=== PATIENT | female | born 1960 | race Caucasian/White ===

== ENCOUNTER → 2018-12-11 10:38 | Outpatient (CLI) | payer BC, SELFPAY ==
--- NOTE | 2018-12-11 10:43 | XR_ITS ---
XR foot LT min 3V HISTORY: ITS.REASON: LEFT FOOT PAIN ORDERING PHYSICIAN: Fredrick Noe MD PATIENT AGE: 58 years COMPARISON: None FINDINGS: There is nondisplaced fracture of the base of the fifth metatarsal with extension into the articular surface of the metatarsal tarsal joint space. Otherwise negative. IMPRESSION: Nondisplaced fracture of the base of the fifth metatarsal
--- NOTE | 2018-12-11 10:43 | XR_ITS ---
XR ankle LT min 3V HISTORY: Pain following injury ITS.REASON: LEFT FOOT PAIN ORDERING PHYSICIAN: Fredrick Noe MD PATIENT AGE: 58 years Comparison: None FINDINGS: There is nondisplaced fracture of the base of the lateral malleolus with overlying soft tissue swelling. Nondisplaced fracture also involves the base of the fifth metatarsal with intra-articular extension. IMPRESSION: Nondisplaced fractures at the base of the lateral malleolus and base of fifth metatarsal with soft tissue swelling
== END ==
PROVIDERS: PCP Family Medicine; Visit Provider Family Medicine
DX: M79.672 Pain in left foot (principal); M25.572 Pain in left ankle and joints of left foot
CPT/HCPCS: 73610; 73630

== ENCOUNTER → 2019-01-10 11:09 | Outpatient (CLI) | payer BC, SELFPAY ==
--- NOTE | 2019-01-10 11:16 | XR_ITS ---
XR foot LT min 3V HISTORY: Follow-up fracture ITS.REASON: FX FIFTH METATARSAL OF LT FOOT ORDERING PHYSICIAN: Ciara Thibodeaux APRN PATIENT AGE: 58 years COMPARISON: 12/11/2018 FINDINGS: Nondisplaced transverse fracture once again noted involving the base of the fifth metatarsal. Fracture line is slightly more apparent when compared to the previous exam. No callous formation evident. IMPRESSION: Persistent nondisplaced transverse fracture base of fifth metatarsal with slight increase in prominence of the fracture line.
--- NOTE | 2019-01-10 11:16 | XR_ITS ---
XR wrist LT min 3V HISTORY ITS.REASON: LT WRIST PAIN ORDERING PHYSICIAN: Ciara Thibodeaux APRN PATIENT AGE: 58 years Comparison: None FINDINGS: There is a comminuted impacted fracture of the distal radius with intra-articular extension of the longitudinal fracture fragments and mild dorsal angulation as well as mild dorsal displacement of the dorsal fracture fragment. There is associated ulnar styloid process fracture. IMPRESSION: There is a comminuted impacted fracture of the distal radius with intra-articular extension of the longitudinal fracture fragments and mild dorsal angulation as well as mild dorsal displacement of the dorsal fracture fragment. There is associated ulnar styloid process fracture
--- NOTE | 2019-01-10 11:16 | XR_ITS ---
XR ankle LT min 3V HISTORY: Follow-up lateral malleoli fracture ITS.REASON: FX LAT MALLEOLUS ORDERING PHYSICIAN: Ciara Thibodeaux APRN PATIENT AGE: 58 years Comparison: 12/11/2018 FINDINGS: There is a nondisplaced transverse fracture involving the distal fibula 18 mm proximal to the tip of the fibula fracture line is visible laterally and not significant changed. There is mild soft tissue swelling. The ankle mortise is preserved. IMPRESSION: No change nondisplaced transverse distal fibular fracture with soft tissue swelling.
== END ==
PROVIDERS: PCP Family Medicine; Visit Provider Nurse Practitioner
DX: M25.532 Pain in left wrist (principal); S92.355A Nondisplaced fracture of fifth metatarsal bone, left foot, initial encounter for closed fracture; S82.65XA Nondisplaced fracture of lateral malleolus of left fibula, initial encounter for closed fracture
CPT/HCPCS: 73110; 73610; 73630

== ENCOUNTER → 2019-01-11 15:01 | Outpatient (CLI) | payer BC, SELFPAY ==
--- NOTE | 2019-01-11 15:17 | XR_ITS ---
XR chest 2V HISTORY: ITS.REASON: TOBACCO USE, PRE OP ORDERING PHYSICIAN: Claudia Braun MD PATIENT AGE: 58 years COMPARISON: 02/06/2017 FINDINGS: Unremarkable cardiovascular structures. COPD. No lobar consolidation or collapse. There is a bone plate over the right clavicle. No acute bony findings. IMPRESSION: COPD, no change with no acute finding
[2019-01-11 15:18] LABS: Basophils # 0.1 K/mm3 (0-0.2); Basophils % 0.6 % (0.1-2.0); Eosinophils # 0.1 K/mm3 (0.0-0.4); Eosinophils % 0.9 % (0.1-12.0); Hematocrit 48.2 % (37.0-47.0); Hemoglobin 15.9 g/dL (12.2-16.2); Lymphocytes # 2.5 K/mm3 (0.7-4.5); Lymphocytes % 26.6 % (10-50); Mean Corpuscular Volume 93.9 fl (81-99); Monocytes # 0.6 K/mm3 (0.1-1.0); Neutrophils # 6.2 K/mm3 (1.8-7.8); Neutrophils % 65.9 % (37.0-80.0); Platelet Count 318 K/mm3 (142-424); Red Blood Count 5.13 M/mm3 (4.20-5.40); Red Cell Distribution Width 13.4 % (11.5-17.5); White Blood Count 9.4 K/mm3 (4.8-10.8)
[2019-01-11 17:38] LABS: Alanine Aminotransferase 51 U/L (12-78); Albumin Level 3.5 gm/dL (3.4-5.0); Albumin/Globulin Ratio 0.9 (1.1-1.8); Alkaline Phosphatase 146 U/L (46-116); Anion Gap 14.5 mEq/L (5-15); Aspartate Amino Transferase 52 U/L (15-37); Bilirubin,Total 0.3 mg/dL (0.2-1.0); Blood Urea Nitrogen 7 mg/dL (7-18); Calcium 8.7 mg/dL (8.5-10.1); Carbon Dioxide 28 mmol/L (21.0-32.0); Chloride 101 mmol/L (98-107); Creatinine,Serum 0.67 mg/dL (0.55-1.02); Estimated Glomerular Filt Rate 90 ml/min (>60); GFR (African American) 109 ML/MIN (>60); Globulin 3.7 gm/dl (1.3-3.2); Glucose 97 mg/dL (74-106); Potassium 4.5 mmoL/L (3.5-5.1); Sodium 139 mmol/L (136-145); Total Protein,Serum 7.2 gm/dL (6.4-8.2)
[2019-01-11 17:56] LABS: INR 0.91 (0.9-1.1); Prothrombin Time 9.5 seconds (9.4-11.8)
== END ==
PROVIDERS: Visit Provider Orthopaedic Surgery
DX: Z01.818 Encounter for other preprocedural examination (principal); S52.572A Other intraarticular fracture of lower end of left radius, initial encounter for closed fracture
CPT/HCPCS: 36415; 71046; 80053; 85025; 85610; 93005

== ENCOUNTER 2019-01-11 15:34 | Outpatient (RCR) | payer BC, SELFPAY | END 2019-01-11 15:40 | disposition home or self-care (01) | LOC: PT 15:34 | PROVIDERS: Visit Provider Orthopaedic Surgery | DX: S52.572A Other intraarticular fracture of lower end of left radius, initial encounter for closed fracture (principal); S92.355A Nondisplaced fracture of fifth metatarsal bone, left foot, initial encounter for closed fracture; S82.832A Other fracture of upper and lower end of left fibula, initial encounter for closed fracture | CPT/HCPCS: 97760 ==

== ENCOUNTER 2019-01-15 08:55 | Day surgery (SDC) | payer BC, SELFPAY ==
[2019-01-14 12:28] VITALS: BMI 30.9
[2019-01-14 15:01] VITALS: BP 97/61; PULSE 91; RESP 16; TEMP 36.6; O2SAT 94
[2019-01-15] VITALS (12 sets, daily range): BP systolic 119–155; BP diastolic 69–86; PULSE 87–104; RESP 16–20; TEMP 36.4–43; O2SAT 91–99
--- NOTE | 2019-01-15 10:04 | P.PN_ITS ---
[facility] Anesthesia Checklist - Patient Identification Patient Identification: Arm Band - Structural Data Admitted From: Home Planned Operative Procedure/s: orif left distal radius Consent for Planned Operative Procedure(s) Verified: Yes Verified Documents: Surgical Consent, History and Physical - NPO Status Verified Time NPO: 00:00 - Additional verifications Anesthesia Reactions: No - Airway Assessment C-Spine Mobility Assessed: Yes (mp2) TMJ Mobility Assessed: Yes Dentition: Good Dentition - Neurological Assessment Level of Consciousness: Awake, Alert - Anesthesia Plan Anesthesia Risk discussed: Yes Anesthesia Plan: Verified ASA Class: II Anesthesia Type: General (with supraclavicular block) [facility] History I have reviewed the patient's past medical history: Yes Medical History: Reports:: Chronic Obstructive Pulmonary Disease (COPD), Gastroesophageal Reflux Disease(GERD) Denies:: Cancer, Diabetes Mellitus Type 1, Diabetes Mellitus Type 2, Internal Pacemaker, MRSA, Seizures *Have you ever received a pneumonia vaccine?: No *Have you received a flu vaccine this season?: No Other Medical History: Denies: Blood Transfusion Reaction Other Surgeries: Yes: Tubal Ligation, Other (left wrist, right clavicle). No: Pacemaker Amputation: No Fractures: Yes - *Social History Smoking Status: Current every day smoker Tobacco Type: cigarettes # Packs/Day (cigarettes): 1 Alcohol Intake: never *Occupational Status:: retired Housing: house Household Members: spouse *Travel in the last 8 weeks: None - Psychiatric History Expresses thoughts of harming self/others: None Suicide Plan Description: No Plan Family Hx:: Cancer
--- NOTE | 2019-01-15 13:57 | HMH.ANESI ---
[facility] Anesthesia Record Part I Intake, IV Amount: 1,500 Estimated blood loss (mL): 25 Urine output (mL): 0 Blood Pressure: 155/76 SaO2: 95 Pulse Rate: 100 Respiratory Rate: 16 Temperature: 97.6 F Patient is:: Drowsy, Stable Stable to PACU at:: 13:50
--- NOTE | 2019-01-15 13:59 | P.PN_ITS ---
[facility] Anesthesia Record Part II Discharge Time: 14:20 Destination: [facility] PACU nurse assessment reviewed?: Yes Patient Condition:: Good Anesthesia Complications:: None Swallowing reflex intact?: Yes Cyanosis?: No
--- NOTE | 2019-01-15 13:59 | HMH.ANESII ---
[facility] Anesthesia Record Part II Discharge Time: 14:20 Destination: [facility] PACU nurse assessment reviewed?: Yes Patient Condition:: Good Anesthesia Complications:: None Swallowing reflex intact?: Yes Cyanosis?: No
--- NOTE | 2019-01-15 14:39 | XR_ITS ---
XR wrist LT 2V HISTORY status post ORIF ITS.REASON: REDUCTION AND HARDWARE ORDERING PHYSICIAN: Claudia Braun MD PATIENT AGE: 58 years Fluoroscopy time: 3 minutes and 4 seconds FINDINGS: Status post ORIF distal radial fracture. Anterior bone plate was placed. There is good alignment. IMPRESSION: Status post ORIF comminuted distal radial fracture with good alignment
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
== END 2019-01-15 15:40 | disposition home or self-care (01) ==
PROVIDERS: PCP Family Medicine; Visit Provider Orthopaedic Surgery
PROC: (CPT 25608; principal; 2019-01-15 10:30)
DX: S52.572A Other intraarticular fracture of lower end of left radius, initial encounter for closed fracture (principal); W01.0XXA Fall on same level from slipping, tripping and stumbling without subsequent striking against object, initial encounter; Z91.81 History of falling; Y92.010 Kitchen of single-family (private) house as the place of occurrence of the external cause; S82.832D Other fracture of upper and lower end of left fibula, subsequent encounter for closed fracture with routine healing; S92.352D Displaced fracture of fifth metatarsal bone, left foot, subsequent encounter for fracture with routine healing
CPT/HCPCS: 25608; 73100; 76000; 96374; C1713; C1769; C1776; J2405

== ENCOUNTER → 2019-01-23 08:50 | Outpatient (CLI) | payer BC, SELFPAY ==
--- NOTE | 2019-01-23 08:56 | XR_ITS ---
XR wrist LT min 3V HISTORY follow-up ORIF, pain, fracture ITS.REASON: post op DOS: 01/16/19 ORDERING PHYSICIAN: Claudia Braun MD PATIENT AGE: 58 years Comparison: 01/15/2019 FINDINGS The bone plate is present over the anterior aspect of the distal radius with good alignment of the comminuted fracture fragments. Avulsion of the tip lower styloid is noted slightly displaced. There is a 3 mm density along the anterior aspect of the wrist in the soft tissues and could represent a displaced fragment or heterotopic ossification or artifact. IMPRESSION: Good alignment status post ORIF distal radial fracture with ulnar styloid avulsion.
== END ==
PROVIDERS: PCP Family Medicine; Visit Provider Orthopaedic Surgery
DX: S52.502A Unspecified fracture of the lower end of left radius, initial encounter for closed fracture (principal)
CPT/HCPCS: 73110

== ENCOUNTER → 2019-02-18 09:39 | Outpatient (CLI) | payer BC, SELFPAY ==
--- NOTE | 2019-02-18 09:42 | XR_ITS ---
XR wrist LT min 3V HISTORY follow-up fracture ITS.REASON: lt distal radius fx ORDERING PHYSICIAN: Claudia Braun MD PATIENT AGE: 58 years Comparison: 01/23/2019 FINDINGS: Status post ORIF distal radial fracture. Anterior bone plate remains in place with good alignment of the bony fragments. Fracture lines are somewhat less visible indicating healing. There is been no change in the nondisplaced avulsion of the ulnar styloid process. IMPRESSION: Healing distal radial fracture that is post ORIF
--- NOTE | 2019-02-18 09:42 | XR_ITS ---
XR foot LT min 3V HISTORY: Follow-up fracture ITS.REASON: left foot pain ORDERING PHYSICIAN: Claudia Braun MD PATIENT AGE: 58 years COMPARISON: 01/10/2019 FINDINGS: Nondisplaced transverse fractures once again noted involving the base of the fifth metatarsal. This is not significant change. The fracture line is still visible. No other significant anomalies are evident. IMPRESSION: No change nondisplaced fracture base of fifth metatarsal
--- NOTE | 2019-02-18 09:42 | XR_ITS ---
XR ankle LT min 3V HISTORY: ITS.REASON: left ankle pain, fracture follow-up ORDERING PHYSICIAN: Claudia Braun MD PATIENT AGE: 58 years Comparison: 01/10/2019 FINDINGS: Nondisplaced transverse fracture involving the distal fibula is somewhat less apparent consistent with early healing. Fracture line is still visible. There is mild overlying soft tissue swelling. IMPRESSION: Healing distal fibular fracture
== END ==
PROVIDERS: PCP Family Medicine; Visit Provider Orthopaedic Surgery
DX: M79.672 Pain in left foot (principal); S52.502A Unspecified fracture of the lower end of left radius, initial encounter for closed fracture; M25.572 Pain in left ankle and joints of left foot
CPT/HCPCS: 73110; 73610; 73630

== ENCOUNTER 2019-02-18 11:34 | Outpatient (RCR) | payer BC, SELFPAY | END 2019-02-18 11:45 | disposition home or self-care (01) | LOC: PT 11:34 | PROVIDERS: Visit Provider Orthopaedic Surgery | DX: M25.572 Pain in left ankle and joints of left foot (principal) | CPT/HCPCS: 97760 ==

== ENCOUNTER 2021-02-05 20:18 | Emergency (ER) | payer BC, SELFPAY ==
[2021-02-05 20:24] VITALS: BP 180/92; BP 180/93; PULSE 114; RESP 21; TEMP 36.8; O2SAT 98; BMI 32.5
[2021-02-05 20:30] VITALS: BP 116/84; PULSE 116; O2SAT 92
[2021-02-05 20:40] LABS: Basophils # 0.1 K/mm3 (0-0.2); Basophils % 1.2 % (0.1-2.0); Eosinophils # 0.1 K/mm3 (0.0-0.4); Eosinophils % 0.8 % (0.1-12.0); Hematocrit 47.2 % (37.0-47.0); Lymphocytes % 32.9 % (10-50); Mean Corpuscular HGB Conc 33.9 g/dL (31.8-35.4); Mean Corpuscular Hemoglobin 31.6 pg (27.0-31.2); Mean Corpuscular Volume 93.4 fl (81-99); Mean Platelet Volume 7.7 fl (7.4-10.4); Monocytes # 0.6 K/mm3 (0.1-1.0); Monocytes % 4.6 % (1.7-9.3); Neutrophils # 7.4 K/mm3 (1.8-7.8); Neutrophils % 60.5 % (37.0-80.0); Platelet Count 283 K/mm3 (142-424); Red Blood Count 5.05 M/mm3 (4.20-5.40); Red Cell Distribution Width 13.7 % (11.5-17.5); White Blood Count 12.2 K/mm3 (4.8-10.8)
--- NOTE | 2021-02-05 20:45 | ECG_ITS ---
APPROVED REPORT Exam: Resting ECG HR:106 bpm ECG Measurements Heart Rate 106 AXES CA 136 P 66 QRSd 84 QRS 65 QT 344 T 33 QTc 456 Conclusion Sinus tachycardia Otherwise normal ECG Electronically signed by : Yung Romeo, 02/06/2021 07:32:24
[2021-02-05 20:47] LABS: Alanine Aminotransferase 52 U/L (12-78); Albumin Level 4.7 g/dl (3.5-5.0); Albumin/Globulin Ratio 1.3 (1.1-1.8); Alkaline Phosphatase 103 U/L (38-126); Anion Gap 12.9 mEq/L (5-15); Aspartate Amino Transferase 69 U/L (14-36); Bilirubin,Total 0.8 mg/dl (0.2-1.3); Blood Urea Nitrogen 12 mg/dl (7-17); Calcium 9.4 mg/dl (8.4-10.2); Carbon Dioxide 27 mmol/L (22.0-30.0); Chloride 102 mmol/L (98-107); Creatinine Clearance Estimated 136 mL/min (50-200); Estimated Glomerular Filt Rate 102 ml/min (>60); GFR (African American) 123 ML/MIN (>60); Globulin 3.6 g/dL (1.3-3.2); Glucose 116 mg/dl (74-100); Potassium 3.9 mmoL/L (3.5-5.1); Sodium 138 mmol/L (136-145); Total Protein,Serum 8.3 g/dl (6.3-8.2)
[2021-02-05 21:00] LABS: Troponin I < 0.01 ng/ml (0.00-0.034)
--- NOTE | 2021-02-05 21:02 | HMH.EDEPIS ---
ED Disposition Clinical Impression: Arterial nasal hemorrhage Disposition: Home, Self-Care Condition on Discharge: Good Instructions: DI for Nosebleed Additional Instructions: use meds and see pcp and dr healy for follow up Prescriptions: lisinopriL [Lisinopril] 10 mg PO DAILY #30 tab Transmission Status: Pending to [id number] Referrals: Provider,MD Yee [Primary Care Provider] - Galileo Healy MD [Staff Physician] - - Critical Care Critical Care Time: No Attestation: On 02/05/21, the high probability of a clinically significant, sudden or life threatening deterioration of the following system(s) required my full and direct attention, intervention and personal management. The time I documented below is in addition to time spent performing reported procedures but includes the following listed in this critical care notation. Medical Decision Making - Medical Records Medical records reviewed: Yes: I reviewed the patient's medical records. - Dwayne Inquiry Pt receiving controlled substance: No Vital Signs: 02/05/21 20:24 02/05/21 20:30 02/05/21 21:30 Temperature 98.2 F Temperature Source Oral Pulse Rate 116 H 96 H Pulse Rate [Right Brachial] 114 H Respiratory Rate 21 Blood Pressure 116/84 149/75 H Blood Pressure [Left Arm] 180/92 H Blood Pressure [Right Arm] 180/93 H Blood Pressure Mean [Left Arm] 121 Blood Pressure Mean [Right Arm] 122 Blood Pressure Source [Left Arm] Manual Cuff/ Auscultation Blood Pressure Source [Right Arm] Automatic Cuff Blood Pressure Position [Left Arm] Sitting Blood Pressure Position [Right Arm] Sitting 02 Sat by Pulse Oximetry 98 92 L 96 Oxygen Delivery Method Room Air Room Air 02/05/21 22:00 Temperature Temperature Source Pulse Rate 97 H Pulse Rate [Right Brachial] Respiratory Rate Blood Pressure 127/67 Blood Pressure [Left Arm] Blood Pressure [Right Arm] Blood Pressure Mean [Left Arm] Blood Pressure Mean [Right Arm] Blood Pressure Source [Left Arm] Blood Pressure Source [Right Arm] Blood Pressure Position [Left Arm] Blood Pressure Position [Right Arm] 02 Sat by Pulse Oximetry 99 Oxygen Delivery Method - Lab Data Lab results reviewed: Yes: I reviewed the patient's lab results. Lab Results 02/05/21 20:28: WBC 12.2 H, RBC 5.05, Hgb 16.0, Hct 47.2 H, MCV 93.4, MCH 31.6 H, MCHC 33.9, RDW 13.7, Plt Count 283, MPV 7.7, Neut % (Auto) 60.5, Lymph % (Auto) 32.9, Moffat % (Auto) 4.6, Eos % (Auto) 0.8, Baso % (Auto) 1.2, Neut # (Auto) 7.4, Lymph # (Auto) 4.0, Moffat # (Auto) 0.6, Eos # (Auto) 0.1, Baso # (Auto) 0.1 02/05/21 20:28: Sodium 138, Potassium 3.9, Chloride 102, Carbon Dioxide 27, Anion Gap 12.9, BUN 12, Creatinine 0.60, Estimated Creat Clear 136, Estimated GFR 102, Est GFR ( Amer) 123, Glucose 116 H, Calcium 9.4, Total Bilirubin 0.8, AST 69 H, ALT 52, Alkaline Phosphatase 103, Troponin I < 0.01, Total Protein 8.3 H, Albumin 4.7, Globulin 3.6 H, Albumin/Globulin Ratio 1.3, TSH 3.42, Thyroxine (T4) 10.1 Result diagrams: 02/05/21 20:28 02/05/21 20:28 Orders (Tests/Meds): ED MEDICATIONS Generic Name Dose Route Start Last Admin Trade Name Freq PRN Reason Stop Dose Admin Sodium Chloride 1,000 mls @ 999 mls/hr 02/05/21 20:30 02/05/21 20:33 Sod Chlor 0.9% 1000ml Bag IV 02/05/21 21:30 999 mls/hr .Q1H1M PETRONA Administration Lisinopril 10 mg 02/06/21 09:00 Lisinopril 10mg Tablet PO 03/08/21 08:59 DAILY PETRONA Sodium Chloride 10 ml 02/05/21 23:24 Sodium Chloride 0.9% 10ml Vial IV 03/07/21 23:23 NEEDED PRN to Dilute Lorazepam inj Discontinued Medications Generic Name Dose Route Start Last Admin Trade Name Freq PRN Reason Stop Dose Admin Cocaine HCl 4 ml 02/05/21 21:09 Cocaine 4% Topical Soln 4ml Bottle TP 02/05/21 21:10 ONCE ONE Lorazepam 0.5 mg 02/05/21 23:24 Lorazepam 2mg/Ml Vial IV 02/05/21 23:25 ONCE ONE Ondansetron HCl 4 mg 0
[2021-02-05 21:04] LABS: T4 (Thyroxine) 10.1 ug/dl (5.53-11.0)
[2021-02-05 21:18] LABS: Thyroid Stimulating Hormone 3.42 uIU/mL (0.465-4.68)
[2021-02-05 21:30] VITALS: BP 149/75; PULSE 96; O2SAT 96
[2021-02-05 22:00] VITALS: BP 127/67; PULSE 97; O2SAT 99
[2021-02-05 23:57] VITALS: BP 124/70; PULSE 75; RESP 17; TEMP 36.9; O2SAT 98
== END 2021-02-05 23:59 | disposition home or self-care (01) ==
PROVIDERS: Emergency Provider Emergency Medicine
DX: R04.0 Epistaxis (principal); I10 Essential (primary) hypertension; J44.9 Chronic obstructive pulmonary disease, unspecified; K21.9 Gastro-esophageal reflux disease without esophagitis; Z79.899 Other long term (current) drug therapy; F17.210 Nicotine dependence, cigarettes, uncomplicated; Z88.0 Allergy status to penicillin
CPT/HCPCS: 80053; 84436; 84443; 84484; 85025; 93005; 99282; 99283; J2405

== ENCOUNTER 2021-02-28 17:03 | Emergency (ER) | payer BC, SELFPAY ==
[2021-02-28 17:33] VITALS: BP 133/54; PULSE 91; RESP 16; TEMP 36.8; O2SAT 98; BMI 31.7
--- NOTE | 2021-02-28 17:47 | HMH.EDUTC ---
[facility] [place] Clinical Impression: Insect bite of right hand with local reaction Qualifiers: Encounter type: initial encounter Qualified Code(s): S60.561A - Insect bite (nonvenomous) of right hand, initial encounter; W57.XXXA - Bitten or stung by nonvenomous insect and other nonvenomous arthropods, initial encounter Disposition: Home, Self-Care Condition on Discharge: Good Instructions: DI for Insect Bites and Stings Additional Instructions: Take Claritin or Benadryl at home Referrals: Provider,Referral, [Primary Care Provider] - Time of Disposition: 17:56 Medical Decision Making - Dwayne Inquiry Pt receiving controlled substance: No [facility] [place] - General Stated complaint: swelling right hand Time Seen by Provider: 02/28/21 17:47 - History of Present Illness Provider Complaint: Patient has swelling in her right hand. Started last night after hiking, so believes she was bitten by something but not sure what. Swelling is improving today but her family wanted her to get checked out. Onset (ago): day(s) (1) Location: right, upper extremity Relieving factors: none Exacerbating factors: none Associated symptoms: denies other symptoms Treatments prior to arrival: none - Related Data Home Medications Medication Instructions Recorded Confirmed pantoprazole 20 mg tablet,delayed 20 mg PO DAILY 01/11/19 02/08/21 release Previous Rx's Medication Instructions Recorded lisinopriL [Lisinopril] 10 mg PO DAILY #30 tab 02/05/21 fexofenadine 180 mg tablet 180 mg PO DAILY #90 tab 02/08/21 sodium chloride-aloe vera nasal 2 spray INTRANASAL HS PRN #22 ml 02/08/21 spray Allergies Allergy/AdvReac Type Severity Reaction Status Date / Time penicillin G [PENICILLIN G] Allergy Mild I-RASH Verified 02/08/21 13:03 [facility] History - Hepatitis A Screen Attestation statement:: This patient has been screened for Hepatitis A risk factors. I have reviewed the patient's past medical history: Yes Medical History: Reports:: Chronic Obstructive Pulmonary Disease (COPD), Gastroesophageal Reflux Disease(GERD), Hypertension Denies:: Cancer, Diabetes Mellitus Type 1, Diabetes Mellitus Type 2, Internal Pacemaker, MRSA, Seizures Other Medical History: Denies: Blood Transfusion Reaction Other Surgeries: Yes: Tubal Ligation, Other. No: Pacemaker Amputation: No Fractures: Yes - Social History Smoking Status: Current every day smoker Tobacco Type: cigarettes # Packs/Day (cigarettes): 1 Alcohol Intake: never Alcohol Intake Frequency:: other Substance Use Type: denies use Occupational Status: retired Housing: house Household Members: spouse Family Hx:: Cancer ROS Obtained: Yes All systems reviewed & no additional complaints - Musculoskeletal Musculoskeletal: Reports as per HPI, Reports joint swelling Physical Exam - General General appearance: alert, in no apparent distress - Eye Eye exam: Present: PERRL - ENT ENT exam: Present: normal oropharynx - Respiratory Respiratory exam: Present: normal lung sounds bilaterally - Cardiovascular Cardiovascular exam: Present: regular rate, normal rhythm - Expanded Upper Extremity Exam Right Hand exam: Present: tenderness, swelling Vascular exam: Normal: capillary refill, radial pulse, ulnar pulse - Neurological Exam Neurological exam: Present: alert, oriented X3 - Psychiatric Psychiatric exam: Present: normal affect, normal mood - Skin Skin exam: Present: warm, dry, intact
[2021-02-28 20:09] VITALS: BP 132/76; PULSE 76; RESP 14; TEMP 36.7; O2SAT 98
== END 2021-02-28 18:20 | disposition home or self-care (01) ==
PROVIDERS: Emergency Provider Physician Assistant
DX: S60.561A Insect bite (nonvenomous) of right hand, initial encounter (principal); W57.XXXA Bitten or stung by nonvenomous insect and other nonvenomous arthropods, initial encounter; I10 Essential (primary) hypertension; J44.9 Chronic obstructive pulmonary disease, unspecified; K21.9 Gastro-esophageal reflux disease without esophagitis; F17.210 Nicotine dependence, cigarettes, uncomplicated; Z88.0 Allergy status to penicillin
CPT/HCPCS: 99202; G0463